=== PATIENT | male | born 1945 | race African-American/Black ===

== ENCOUNTER 2018-01-30 19:51 | Inpatient (IN) | payer MEDICARE ==
[~2018-01-30] VITALS: Ht 175.3 cm; Wt 86.2 kg
[2018-01-30 20:00] VITALS: BP 132/52
[2018-01-30] MEDS ORDERED: NS 1000ml 2,600 ML IVLG ONE (20:15)
--- NOTE | 2018-01-30 20:16 | Emergency Room Report ---
History of Present Illness General Chief Complaint: Generalized Weakness Source: Patient Present Illness HPI Patient is a 80-year-old male who presented after increased altered mental status and generalized weakness. Patient had previously been found in a hot room. The patient was noted to have initial temperature greater than 104. The patient had been having some increased confusion. The patient was brought in by EMS. The history is markedly limited by patient's mental status. Allergies: Coded Allergies: No Known Allergies (Unverified , 01/30/18) Patient History Past Medical History: see triage record Reviewed Nursing Documentation: PMH: Agreed; PSxH: Agreed Nursing Documentation-PMH Hx Hypertension: Yes Hx Diabetes: Yes Review of Systems All Other Systems: limited - by mental status Physical Exam Vital Signs Date Time Temp Pulse Resp B/P (MAP) Pulse Ox O2 Delivery O2 Flow Rate FiO2 01/30/18 19:51 99.1 104 16 159/75 99 Room Air 99.1 Sp02 EP Interpretation: reviewed, normal General Appearance: normal inspection, well appearing, no apparent distress, alert, other - confused Head: atraumatic ENT: normal ENT inspection, hearing grossly normal, normal voice, dry mucus membranes Neck: normal inspection, full range of motion, supple, no bony tend Respiratory: normal inspection, lungs clear, normal breath sounds, no respiratory distress, no retraction, no wheezing Cardiovascular #1: regular rate, rhythm, no edema Gastrointestinal: normal inspection, normal bowel sounds, non tender, soft, no guarding, no hernia Genitourinary: no CVA tenderness Musculoskeletal: normal inspection, back normal, normal range of motion Neurologic: normal inspection, alert, responsive, nutrition aides teacher III-XII nml as tested, other - slow confused speech Psychiatric: normal inspection, judgement/insight normal, mood/affect normal Skin: normal color, no rash, abrasions Medical Decision Making Diagnostic Impression: Primary Impression: Heat stroke Additional Impressions: Hx of malignant neoplasm Dehydration ER Course patient presented altered mental status. Differential diagnosis included but was not limited to heat stroke, ischemic stroke, subarachnoid hemorrhage, hypoglycemia, spinal cord injury, neurodegenerative disorder, urinary tract infection, hypoxemia. Because of complexity of patient's case laboratory testing and imaging studies were ordered.Laboratory study showed evidence of dehydration as well as hyperglycemia. Patient noted be somewhat hyperkalemic and was given IV fluids with some improvement in his mental status and weakness. Dr. Lebron Davalos was contacted for inpatient management due to panel physician. Labs Test 01/30/18 20:15 01/30/18 22:45 White Blood Count 7.2 K/UL (4.8-10.8) Red Blood Count 3.69 M/UL (4.70-6.10) Hemoglobin 10.7 G/DL (14.2-18.0) Hematocrit 31.7 % (42.0-52.0) Mean Corpuscular Volume 86 FL (80-99) Mean Corpuscular Hemoglobin 28.9 PG (27.0-31.0) Mean Corpuscular Hemoglobin Concent 33.7 G/DL (32.0-36.0) Red Cell Distribution Width 16.4 % (11.6-14.8) Platelet Count 107 K/UL (150-450) Mean Platelet Volume 6.6 FL (6.5-10.1) Neutrophils (%) (Auto) 77.6 % (45.0-75.0) Lymphocytes (%) (Auto) 15.6 % (20.0-45.0) Monocytes (%) (Auto) 6.2 % (1.0-10.0) Eosinophils (%) (Auto) 0.1 % (0.0-3.0) Basophils (%) (Auto) 0.6 % (0.0-2.0) Sodium Level 132 MMOL/L (136-145) Potassium Level 5.5 MMOL/L (3.5-5.1) Chloride Level 101 MMOL/L (98-107) Carbon Dioxide Level 21 MMOL/L (21-32) Anion Gap 10 mmol/L (5-15) Blood Urea Nitrogen 40 mg/dL (7-18) Creatinine 1.2 MG/DL (0.55-1.30) Estimat Glomerular Filtration Rate mL/min (>60) Glucose Level 342 MG/DL (74-106) Lactic Acid Level 1.70 mmol/L (0.4-2.0) Calcium Level 8.5 MG/DL (8.5-10.1) Total Bilirubin 0.5 MG/DL (0.2-1.0) Aspartate Amino Transf (AST/SGOT) 37 U/L (15-37) Alanine Aminotransferase (ALT/SGPT) 42 U/L (12-78) Alkaline Phosphatase 1157 U/L (46-116) Total Creatine Kinase 69 U/L (26-308) Creatine Kinase MB < 0.5 NG/ML (0.0-3.6) Creatine Kinase MB Relative Index 0.7 Troponin I 0.009 ng/mL (0.000-0.056) Total Protein 6.5 G/DL (6.4-8.2) Albumin 2.4 G/DL (3.4-5.0) Globulin 4.1 g/dL Albumin/Globulin Ratio 0.6 (1.0-2.7) Urine Color Pale yellow Urine Appearance Slightly cloudy Urine pH 5 (4.5-8.0) Urine Specific [place] 1.010 (1.005-1.035) Urine Protein 2+ (NEGATIVE) Urine Glucose (UA) 2+ (NEGATIVE) Urine Ketones Negative (NEGATIVE) Urine Occult Blood 3+ (NEGATIVE) Urine Nitrite Negative (NEGATIVE) Urine Bilirubin Negative (NEGATIVE) Urine Urobilinogen Normal MG/DL (0.0-1.0) Urine Leukocyte Esterase 2+ (NEGATIVE) EKG Diagnostic Results Rate: tachycardiac Rhythm: NSR ST Segments: no acute changes Last Vital Signs Date Time Temp Pulse Resp B/P (MAP) Pulse Ox O2 Delivery O2 Flow Rate FiO2 01/30/18 19:51 99.1 104 16 159/75 99 Room Air 99.1 Status: improved Disposition: ADMITTED INPATIENT Condition: Pranay Salas MD Jan 30, 2018 20:16
--- NOTE | 2018-01-30 20:30 | Diagnostic Imaging Report ---
EXAM: XR Chest, 1 View CLINICAL HISTORY: SOB TECHNIQUE: Frontal view of the chest. COMPARISON: No relevant prior studies available. FINDINGS: Lungs: Peribronchial thickening without infiltrate. Pleural space: Unremarkable. No pneumothorax. Heart: Unremarkable. No cardiomegaly. Mediastinum: Unremarkable. Bones/joints: Unremarkable. IMPRESSION: Peribronchial thickening without infiltrate.
[2018-01-30 20:42] LABS: BASOPHILS % (AUTO) 0.6 % (0.0-2.0); EOSINOPHILS % (AUTO) 0.1 % (0.0-3.0); HEMATOCRIT 31.7 % (42.0-52.0); HEMOGLOBIN 10.7 G/DL (14.2-18.0); LYMPHOCYTES % (AUTO) 15.6 % (20.0-45.0); MEAN CORPUSCULAR VOLUME 86 FL (80-99); MONOCYTES % (AUTO) 6.2 % (1.0-10.0); NEUTROPHILS % (AUTO) 77.6 % (45.0-75.0); PLATELET COUNT 107 K/UL (150-450); RED BLOOD COUNT 3.69 M/UL (4.70-6.10); RED CELL DISTRIBUTION WIDTH 16.4 % (11.6-14.8); WHITE BLOOD COUNT 7.2 K/UL (4.8-10.8)
[2018-01-30 21:02] LABS: ANION GAP 10 mmol/L (5-15); BLOOD UREA NITROGEN 40 mg/dL (7-18); CALCIUM 8.5 MG/DL (8.5-10.1); CARBON DIOXIDE 21 MMOL/L (21-32); CHLORIDE 101 MMOL/L (98-107); CREATININE 1.2 MG/DL (0.55-1.30); POTASSIUM 5.5 MMOL/L (3.5-5.1); SODIUM 132 MMOL/L (136-145)
[2018-01-30 21:15] LABS: ALANINE AMINOTRANSFERASE 42 U/L (12-78); ALBUMIN 2.4 G/DL (3.4-5.0); ALBUMIN/GLOBULIN RATIO 0.6 (1.0-2.7); ALKALINE PHOSPHATASE 1157 U/L (46-116); ASPARTATE AMINO TRANSFERASE 37 U/L (15-37); BILIRUBIN,TOTAL 0.5 MG/DL (0.2-1.0); CKMB < 0.5 NG/ML (0.0-3.6); CREATINE KINASE 69 U/L (26-308)
[2018-01-30 22:14] VITALS: BP 150/80
[2018-01-30 23:12] VITALS: BP 117/57
[2018-01-30] MEDS ORDERED: Insulin Human Regular 100units/ml 3ml SUBQ ONE (23:15)
[2018-01-30 23:22] LABS: APPEARANCE,URINE SLIGHTLY CLOUDY; BILIRUBIN, URINE NEGATIVE (NEGATIVE); COLOR,URINE PALE YELLOW; GLUCOSE, URINE (UA) 2+ (NEGATIVE); KETONES,URINE NEGATIVE (NEGATIVE); LEUKOCYTE ESTERASE ,URINE 2+ (NEGATIVE); NITRITE,URINE NEGATIVE (NEGATIVE); PH,URINE 5 (4.5-8.0); PROTEIN,URINE 2+ (NEGATIVE); UROBILINOGEN,URINE NORMAL MG/DL (0.0-1.0)
[2018-01-31] MEDS ORDERED: PERCOCET 10-321 EAC1 PO (00:40)
[2018-01-31] MEDS ORDERED: AMLODIPINE BES2.5 MG ORAL (00:40)
[2018-01-31] MEDS ORDERED: HYDROMORPHO1 MG/1 M2 PO (00:40)
[2018-01-31] MEDS ORDERED: CATAPRES0.1 MG ORAL (00:40)
[2018-01-31 00:53] VITALS: BP 154/72
[2018-01-31] MEDS ORDERED: GABAPENTIN300 MG ORAL (02:50)
[2018-01-31] MEDS ORDERED: CARVEDILOL25 MG ORAL (02:50)
[2018-01-31] MEDS ORDERED: PERCOCET 10-321 EACH ORAL (02:50)
[2018-01-31] MEDS ORDERED: TAMSULOSIN HCL0.4 MG ORAL (02:50)
[2018-01-31] MEDS ORDERED: AMLODIPINE BESY10 MG ORAL (02:50)
[2018-01-31] MEDS ORDERED: LOSARTAN POTASS50 MG ORAL (02:50)
[2018-01-31] MEDS ORDERED: CLONIDINE0.1 MG PO (02:50)
[2018-01-31] MEDS ORDERED: DEXAMETHASONE4 M1 PO (02:50)
[2018-01-31 04:00] VITALS: BP 136/67
[2018-01-31] MEDS ORDERED: HYDROmorphone 2mg tab ORAL PRN ×3 (06:30→15:00)
[2018-01-31] MEDS ORDERED: Zolpidem 5mg tab ORAL PRN ×2 (06:30→21:00)
[2018-01-31] MEDS ORDERED: Milk of Magnesia 30ml Ud ORAL PRN ×2 (06:30→12:00)
[2018-01-31 08:00] VITALS: BP 130/67
[2018-01-31 08:09] LABS: HEMATOCRIT 30.1 % (42.0-52.0); HEMOGLOBIN 10.3 G/DL (14.2-18.0); MEAN CORPUSCULAR VOLUME 86 FL (80-99); PLATELET COUNT 93 K/UL (150-450); RED BLOOD COUNT 3.52 M/UL (4.70-6.10); RED CELL DISTRIBUTION WIDTH 16.3 % (11.6-14.8); WHITE BLOOD COUNT 6.3 K/UL (4.8-10.8)
[2018-01-31 08:55] LABS: ALANINE AMINOTRANSFERASE 37 U/L (12-78); ALBUMIN 2.1 G/DL (3.4-5.0); ALBUMIN/GLOBULIN RATIO 0.6 (1.0-2.7); ALKALINE PHOSPHATASE 996 U/L (46-116); ANION GAP 11 mmol/L (5-15); ASPARTATE AMINO TRANSFERASE 32 U/L (15-37); BILIRUBIN,TOTAL 0.4 MG/DL (0.2-1.0); BLOOD UREA NITROGEN 31 mg/dL (7-18); CALCIUM 8.2 MG/DL (8.5-10.1); CARBON DIOXIDE 21 MMOL/L (21-32); CHLORIDE 104 MMOL/L (98-107); CREATININE 0.8 MG/DL (0.55-1.30); POTASSIUM 4.6 MMOL/L (3.5-5.1); SODIUM 136 MMOL/L (136-145)
--- NOTE | 2018-01-31 10:41 | History & Physical ---
History and Physical History & Physicial Patient is a 80-year-old male who presented after increased altered mental status and generalized weakness after being found in a hot room. The patient was noted to have initial temperature greater than 104 on arrival. The patient was noted to have confusion. LOC was reduced but now back to baseline. patient reports pain and has hypertension. also with history of diabetes and neuropathy. no falls or trauma Allergies: No Known Allergies (Unverified , 01/30/18) Past Medical History: dm, htn, chronic pain, neuropathy Past surgical history: as above Reviewed of systems: as above physical exam WDWN NAD clear breath sounds bilaterally without rhonchi or wheeze [id number] without MRG NABS nontender no HSM no CCE nonfocal Labs Test 01/30/18 20:15 01/30/18 22:45 01/31/18 07:00 White Blood Count 7.2 K/UL (4.8-10.8) 6.3 K/UL (4.8-10.8) Red Blood Count 3.69 M/UL (4.70-6.10) 3.52 M/UL (4.70-6.10) Hemoglobin 10.7 G/DL (14.2-18.0) 10.3 G/DL (14.2-18.0) Hematocrit 31.7 % (42.0-52.0) 30.1 % (42.0-52.0) Mean Corpuscular Volume 86 FL (80-99) 86 FL (80-99) Mean Corpuscular Hemoglobin 28.9 PG (27.0-31.0) 29.2 PG (27.0-31.0) Mean Corpuscular Hemoglobin Concent 33.7 G/DL (32.0-36.0) 34.1 G/DL (32.0-36.0) Red Cell Distribution Width 16.4 % (11.6-14.8) 16.3 % (11.6-14.8) Platelet Count 107 K/UL (150-450) 93 K/UL (150-450) Mean Platelet Volume 6.6 FL (6.5-10.1) 8.0 FL (6.5-10.1) Neutrophils (%) (Auto) 77.6 % (45.0-75.0) % (45.0-75.0) Lymphocytes (%) (Auto) 15.6 % (20.0-45.0) % (20.0-45.0) Monocytes (%) (Auto) 6.2 % (1.0-10.0) % (1.0-10.0) Eosinophils (%) (Auto) 0.1 % (0.0-3.0) % (0.0-3.0) Basophils (%) (Auto) 0.6 % (0.0-2.0) % (0.0-2.0) Sodium Level 132 MMOL/L (136-145) 136 MMOL/L (136-145) Potassium Level 5.5 MMOL/L (3.5-5.1) 4.6 MMOL/L (3.5-5.1) Chloride Level 101 MMOL/L (98-107) 104 MMOL/L (98-107) Carbon Dioxide Level 21 MMOL/L (21-32) 21 MMOL/L (21-32) Anion Gap 10 mmol/L (5-15) 11 mmol/L (5-15) Blood Urea Nitrogen 40 mg/dL (7-18) 31 mg/dL (7-18) Creatinine 1.2 MG/DL (0.55-1.30) 0.8 MG/DL (0.55-1.30) Estimat Glomerular Filtration Rate mL/min (>60) mL/min (>60) Glucose Level 342 MG/DL (74-106) 170 MG/DL (74-106) Lactic Acid Level 1.70 mmol/L (0.4-2.0) Calcium Level 8.5 MG/DL (8.5-10.1) 8.2 MG/DL (8.5-10.1) Total Bilirubin 0.5 MG/DL (0.2-1.0) 0.4 MG/DL (0.2-1.0) Aspartate Amino Transf (AST/SGOT) 37 U/L (15-37) 32 U/L (15-37) Alanine Aminotransferase (ALT/SGPT) 42 U/L (12-78) 37 U/L (12-78) Alkaline Phosphatase 1157 U/L (46-116) 996 U/L (46-116) Total Creatine Kinase 69 U/L (26-308) Creatine Kinase MB < 0.5 NG/ML (0.0-3.6) Creatine Kinase MB Relative Index 0.7 Troponin I 0.009 ng/mL (0.000-0.056) Total Protein 6.5 G/DL (6.4-8.2) 5.9 G/DL (6.4-8.2) Albumin 2.4 G/DL (3.4-5.0) 2.1 G/DL (3.4-5.0) Globulin 4.1 g/dL 3.8 g/dL Albumin/Globulin Ratio 0.6 (1.0-2.7) 0.6 (1.0-2.7) Urine Color Pale yellow Urine Appearance Slightly cloudy Urine pH 5 (4.5-8.0) Urine Specific [place] 1.010 (1.005-1.035) Urine Protein 2+ (NEGATIVE) Urine Glucose (UA) 2+ (NEGATIVE) Urine Ketones Negative (NEGATIVE) Urine Occult Blood 3+ (NEGATIVE) Urine Nitrite Negative (NEGATIVE) Urine Bilirubin Negative (NEGATIVE) Urine Urobilinogen Normal MG/DL (0.0-1.0) Urine Leukocyte Esterase 2+ (NEGATIVE) Urine RBC 5-10 /HPF (0 - 0) Urine WBC 10-15 /HPF (0 - 0) Urine Squamous Epithelial Cells Few /LPF (NONE/OCC) Urine Amorphous Sediment Few /LPF (NONE) Urine Bacteria Few /HPF (NONE) Differential Total Cells Counted 100 Neutrophils % (Manual) 70 % (45-75) Lymphocytes % (Manual) 16 % (20-45) Monocytes % (Manual) 11 % (1-10) Eosinophils % (Manual) 1 % (0-3) Basophils % (Manual) 0 % (0-2) Band Neutrophils 2 % (0-8) Platelet Estimate Decreased Platelet Morphology Normal Anisocytosis 1+ Thyroid Stimulating Hormone (TSH) 0.177 uiU/mL (0.358-3.740) IMPRESSION anemia acute renal failure fever dehydration dm htn chronic pain PLAN hydration diabetic diet PT renal monitor for change pain management impression, plan, and exam edited and reviewed in detail care discussed with Lebron Lloyd MD Jan 31, 2018 10:41
[2018-01-31] MEDS ORDERED: NovoLOG Insulin Flexpen SUBQ SCH (11:30)
[2018-01-31 12:00] VITALS: BP 129/69
[2018-01-31] MEDS: NovoLOG Insulin Flexpen SUBQ SCH ×3 (12:25→20:54)
[2018-01-31 15:52] VITALS: BP 158/79
[2018-01-31] MEDS: Docusate 100mg cap ORAL SCH (18:54)
[2018-01-31 20:00] VITALS: BP 173/84
--- NOTE | 2018-01-31 20:00 | Consultation ---
DATE OF CONSULTATION: 01/31/2018 DATE OF ADMISSION: 01/30/2018 CONSULTING PHYSICIAN: Deshawn Burks M.D. REFERRING PHYSICIAN: Lebron Davalos M.D. REASON FOR CONSULTATION: 1. Acute kidney injury . 2. Hyperkalemia. HISTORY OF PRESENT ILLNESS: The patient is a pleasant 80-year-old gentleman who was admitted overnight for further evaluation and care of acute encephalopathy/altered mental status and generalized weakness. He was found in extremely hot room. Temperature was 104.0 on arrival. The patient said that he lost his air conditioning and was extremely warm and passed out. When it was noted that he had an elevated creatinine of 1.2, BUN of 40 with a potassium of 5.5 and a sodium of 132, the patient was aggressively hydrated and admitted for further evaluation and care. ALLERGIES: No known drug allergies. PAST MEDICAL HISTORY: 1. Diabetes mellitus. 2. Hypertension. 3. Chronic pain. 4. Neuropathy. PAST SURGICAL HISTORY: Noncontributory. FAMILY HISTORY: Positive for hypertension. SOCIAL HISTORY: No current tobacco, alcohol, illicit drug use. PHYSICAL EXAMINATION: VITAL SIGNS: Blood pressure 130/67, respiratory rate 18, pulse 67, temperature 98.3, 95% oxygen saturation on room air. GENERAL: The patient awake, alert, not otherwise in distress. HEENT: Extraocular muscles intact. No lymphadenopathy. Oropharyngeal mucosa clear and dry CARDIOVASCULAR: S1 and S2. No rubs or gallops. PULMONARY: Clear to auscultation bilaterally. No rales, rhonchi or wheezes. ABDOMEN: Nondistended and nontender. EXTREMITIES: No edema noted. LABORATORY AND DIAGNOSTIC DATA: Laboratories dated January 30, 2018, sodium 132, potassium 5.5, BUN 40, creatinine 1.2. CPK 69. Troponin 0.009. Hemoglobin 10.3, white cell count 6.3, and platelet count 93. ASSESSMENT AND PLAN: 1. Hyponatremia secondary to volume depletion. Continue IV fluids, mild in nature, 132. Anticipate with IV hydration serum sodium to normalize. 2. Hyperkalemia, most likely secondary to acute kidney injury episode. Continue aggressive hydration, hold losartan temporarily until blood pressure stabilizes along with the potassium. 3. Acute kidney injury secondary to volume depletion at this time. Hold ARB and aggressively hydrate the patient. Renal function showed normalized back to normal range. 4. Heat stroke/exhaustion. Continue IV hydration. The patient much improved. I would take this opportunity to thank Dr. Davalos. Deshawn Burks MD DR: Vita JOB#: [id number] CC: IFRAH
[2018-01-31] MEDS: Carvedilol 25mg Tab ORAL SCH (20:52)
[2018-01-31] MEDS ORDERED: Tamsulosin 0.4mg cap ORAL SCH ×2 (21:00)
[2018-02-01] VITALS: BP 148/76
[2018-02-01 04:00] VITALS: BP 154/76
[2018-02-01] MEDS: NovoLOG Insulin Flexpen SUBQ SCH ×3 (06:40→17:01)
[2018-02-01 07:53] LABS: ANION GAP 8 mmol/L (5-15); BLOOD UREA NITROGEN 27 mg/dL (7-18); CALCIUM 8.3 MG/DL (8.5-10.1); CARBON DIOXIDE 21 MMOL/L (21-32); CHLORIDE 106 MMOL/L (98-107); CREATININE 0.7 MG/DL (0.55-1.30); POTASSIUM 4.7 MMOL/L (3.5-5.1); SODIUM 135 MMOL/L (136-145)
[2018-02-01 08:00] VITALS: BP 160/81
--- NOTE | 2018-02-01 08:43 | General Progress Note ---
Assessment/Plan Assessment/Plan IMPRESSION anemia acute renal failure fever dehydration dm htn chronic pain low grade fevers PLAN hydration, encourage after dc diabetic diet PT renal noted monitor for change pain management dc planning impression, plan, and exam edited and reviewed in detail care discussed with RN Subjective Allergies: Coded Allergies: No Known Allergies (Unverified , 01/30/18) Subjective moved off the tele stable on fluids bp coming up Objective Last 24 Hour Vital Signs Date Time Temp Pulse Resp B/P (MAP) Pulse Ox O2 Delivery O2 Flow Rate FiO2 02/01/18 08:00 99.6 76 20 160/81 (107) 96 99.6 02/01/18 04:00 97.9 70 20 154/76 (102) 93 97.9 02/01/18 00:00 98.4 85 20 148/76 (100) 95 98.4 01/31/18 21:00 Room Air 01/31/18 20:52 85 173/84 01/31/18 20:00 99.0 85 21 173/84 (113) 95 99.0 01/31/18 18:56 154/89 01/31/18 16:40 97.1 01/31/18 15:52 97.1 78 18 158/79 (105) 95 97.1 01/31/18 15:41 98.3 01/31/18 12:57 98.3 01/31/18 12:00 98.9 79 19 129/69 (89) 95 98.9 01/31/18 11:58 98.3 01/31/18 09:00 Room Air Intake and Output 01/31/18 02/01/18 19:00 07:00 Intake Total 1080 ml Balance 1080 ml Intake Oral 480 ml IV Total 600 ml # Voids 2 4 Laboratory Tests 02/01/18 06:05: Sodium Level 135L, Potassium Level 4.7, Chloride Level 106, Carbon Dioxide Level 21, Anion Gap 8, Blood Urea Nitrogen 27H, Creatinine 0.7, Estimat Glomerular Filtration Rate , Glucose Level 187H, Calcium Level 8.3L Height (Feet): 5 Height (Inches): 9.00 Weight (Pounds): 190 Objective WDWN NAD clear breath sounds bilaterally without rhonchi or wheeze [id number] without MRG NABS nontender no HSM no CCE nonfocal alert and ambulatory Lebron Davalos MD Feb 01, 2018 08:43
[2018-02-01] MEDS ORDERED: Losartan 50mg tab ORAL SCH ×2 (09:00)
[2018-02-01] MEDS: Docusate 100mg cap ORAL SCH ×2 (09:14→17:49)
[2018-02-01] MEDS: Carvedilol 25mg Tab ORAL SCH (09:15)
--- NOTE | 2018-02-01 10:03 | Nephrology Progress Note ---
Assessment/Plan Assessment/Plan 1. TYRA- resolved. Due to volume depletion - continue IVF's 2. Heat Stroke- IVF's, resolved 3. Hyponatremia- Na back to 135. Continue IVF's for now. Poss Tx to [facility] 4. Prostate CA- defer to PCP Subjective Date patient seen: Feb 01, 2018 Time patient seen: 10:01 ROS Limited/Unobtainable: No Allergies: Coded Allergies: No Known Allergies (Unverified , 01/30/18) All Systems: reviewed and negative except above Subjective Patient feels well. Requesting Tx to [facility] to start chemo for Prostate CA Objective Last 24 Hour Vital Signs Date Time Temp Pulse Resp B/P (MAP) Pulse Ox O2 Delivery O2 Flow Rate FiO2 02/01/18 09:20 160/81 02/01/18 09:15 76 160/81 02/01/18 09:15 160/81 02/01/18 09:14 76 160/81 02/01/18 08:00 99.6 76 20 160/81 (107) 96 99.6 02/01/18 04:00 97.9 70 20 154/76 (102) 93 97.9 02/01/18 00:00 98.4 85 20 148/76 (100) 95 98.4 01/31/18 21:00 Room Air 01/31/18 20:52 85 173/84 01/31/18 20:00 99.0 85 21 173/84 (113) 95 99.0 01/31/18 18:56 154/89 01/31/18 16:40 97.1 01/31/18 15:52 97.1 78 18 158/79 (105) 95 97.1 01/31/18 15:41 98.3 01/31/18 12:57 98.3 01/31/18 12:00 98.9 79 19 129/69 (89) 95 98.9 01/31/18 11:58 98.3 Intake and Output 01/31/18 02/01/18 19:00 07:00 Intake Total 1080 ml Balance 1080 ml Intake Oral 480 ml IV Total 600 ml # Voids 2 4 Laboratory Tests 02/01/18 06:05: Sodium Level 135L, Potassium Level 4.7, Chloride Level 106, Carbon Dioxide Level 21, Anion Gap 8, Blood Urea Nitrogen 27H, Creatinine 0.7, Estimat Glomerular Filtration Rate , Glucose Level 187H, Calcium Level 8.3L Height (Feet): 5 Height (Inches): 9.00 Weight (Pounds): 190 General Appearance: no apparent distress, alert EENT: normal ENT inspection Neck: non-tender, normal alignment, supple Cardiovascular: normal rate, regular rhythm Respiratory/Chest: lungs clear, normal breath sounds Abdomen: normal bowel sounds, non tender, soft Edema: no edema noted Arm (L), no edema noted Arm (R), no edema noted Leg (L), no edema noted Leg (R), no edema noted Pedal (L), no edema noted Pedal (R), no edema noted Generalized Deshawn Burks M.D. Feb 01, 2018 10:03
[2018-02-01 11:58] VITALS: BP 109/62
[2018-02-01 16:00] VITALS: BP 146/72
[2018-02-01 20:00] VITALS: BP 142/72
--- NOTE | 2018-02-03 09:54 | Discharge Summary ---
Discharge Summary Discharge Summary _ DATE OF ADMISSION: 01/30/2018 DATE OF DISCHARGE: 02/01/2018 REASON FOR ADMISSION: 80 years old male with past medical history of hypertension and diabetes, was brought with altered mental status and generalized weakness. Patient was found in hot room. Patient was confused and unable to provide meaningful information. Patient had fever 104.7, was tachycardic. No leukocytosis, mild anemia with hemoglobin 10.3 and hematocrit 31.7 Chemistry revealed acute renal failure with BUN 40 creatine 1.2 ,potassium 5.5, sodium 132. Lactic acid 1.7. Troponin was negative. ECG revealed normal sinus rhythm, no acute ischemic changes.. Chest x-ray revealed peribronchial thickening without infiltrate. Urinalysis revealed pyuria and few bacteria. Patient admitted with diagnosis of acute renal failure,hyperkalemia, dehydration, anemia, diabetes, hypertension, chronic pain heatstroke/ exhaustion. 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 Burks [facility] COURSE: Patient admitted. Patient started on aggressive IV hydration. Nephrology consult was requested. Renal parameters and electrolytes were closely monitored. Nephrotoxins were avoided. Electrolytes were corrected as needed. Prior to discharge BUN 27 creatinine 0.7. Potassium 4.7 and sodium 135. Acute renal failure was likely secondary to intravascular volume depletion brought by dehydration due to heat stroke/exhaustion. Cozaar was hold due to hyperkalemia. Blood pressure was managed with calcium channel carole, carole beta carole and clonidine. Heart rate was stable. Blood sugar was managed with sliding scale of insulin. GI prophylaxis provided. Pain management was addressed. Supportive care provided. Hemoglobin and hematocrit were closely monitored with goal to keep hemoglobin above 7, remained stable. Prior to discharge hemoglobin 10.3 hematocrit 30.1. Patient was working with physical therapy. Noted low TSH. Repeat thyroid function tests as outpatient. Urinalysis revealed gram-positive cocci. However patient had no urinary complaints: no dysuria , no frequency, no burning . No antibiotics were started. Blood culture were negative. Lijkely asymptomatic bacteriuria. Initial fever resolved. Mental status back to baseline. Patient clinically improved and was stable for discharge home with home health services to follow FINAL DIAGNOSES: Acute renal failure/acute kidney injury, likely secondary to intravascular volume depletion-resolved Hyperkalemia, likely secondary to acute kidney injury episode-resolved Dehydration Heatstroke/exhaustion Anemia-stable Diabetes mellitus Hypertension Chronic pain DISCHARGE MEDICATIONS: See Medication Reconciliation list. DISCHARGE INSTRUCTIONS: Patient was discharged home with home health services. Follow-up with the primary care provider in one week. I have been assigned to dictate discharge summary for this account. I was not involved in the patient's management. Amy Solis NP Feb 03, 2018 09:54
== END 2018-02-01 20:15 | disposition home health service (06) | DRG 923 ==
LOC: EDBD 19:51 → EMR 20:15 → 2E 21:39 → EDBD 21:39 → EDBEDREQ 22:25 → 2E 01-31 01:13 → 4W 01-31 10:54
DX: T67.0XXA Heatstroke and sunstroke, initial encounter (principal); N17.9 Acute kidney failure, unspecified; E87.1 Hypo-osmolality and hyponatremia; I10 Essential (primary) hypertension; G62.9 Polyneuropathy, unspecified; D64.9 Anemia, unspecified; E86.0 Dehydration; E11.40 Type 2 diabetes mellitus with diabetic neuropathy, unspecified; E11.65 Type 2 diabetes mellitus with hyperglycemia; G89.29 Other chronic pain; E87.5 Hyperkalemia; Z85.46 Personal history of malignant neoplasm of prostate
CPT/HCPCS: 36415; 71045; 80048; 80053; 81003; 82550; 82553; 82962; 83605; 84443; 84484; 85007; 85025; 87040; 87086; 87181; 93005; 99285; J1815